=== PATIENT | male | born 1985 | race African-American/Black ===

== ENCOUNTER 2023-09-01 14:27 | Outpatient (REF) | payer MEDICAID, SELFPAY ==
[2023-09-01 17:51] LABS: Alanine Aminotransferase 40 U/L (0-40); Albumin Level 4.7 g/dL (3.5-5.0); Alkaline Phosphatase 58 U/L (39-117); Anion Gap 15 (12-20); Aspartate Amino Transferase 41 U/L (5-37); Bilirubin Total 0.5 mg/dL (0.0-1.0); Blood Urea Nitrogen 7 mg/dL (9-16); Carbon Dioxide 24 mmol/L (22-29); Chloride 104 mmol/L (96-108); Cholesterol 281 mg/dL (<200); Estimated Glomerular Filt Rate > 60; Glucose Random 105 mg/dL (60-115); HDL Cholesterol 62 mg/dL (>40); LDL Cholesterol Calculated 189 mg/dL (<100); Magnesium 1.9 mg/dL (1.6-2.6); Potassium 4.5 mmol/L (3.3-5.1); Sodium 138 mmol/L (135-145); Total Protein 7.7 g/dL (6.5-8.0); Triglycerides 154 mg/dL (<150)
[2023-09-01 18:05] LABS: TSH reflex Free T4 1.32 uIU/mL (0.32-4.0)
[2023-09-02 03:58] LABS: HIV AB/AG Nonreactive (Nonreactive); HIV Num 1 0.04 S/CO (0.00-0.99)
== END 2023-09-01 14:28 | disposition home or self-care (01) ==
LOC: HO.CHCLDS 14:27
PROVIDERS: Visit Provider Internal Medicine
DX: Z00.00 Encounter for general adult medical examination without abnormal findings (principal); Z11.4 Encounter for screening for human immunodeficiency virus [HIV]; I10 Essential (primary) hypertension; R73.01 Impaired fasting glucose; F10.10 Alcohol abuse, uncomplicated; E78.00 Pure hypercholesterolemia, unspecified
CPT/HCPCS: 36415; 80053; 80061; 83735; 84443; 87389

== ENCOUNTER 2024-12-27 10:21 | Outpatient (REF) | payer MEDICAID, SELFPAY ==
--- OUTSIDE RECORDS SUMMARY | 2024-12-27 11:27 | XMS_ITS | Encounter Summary ---
Author Organization [employer] Address [address] [facility] 7t [place] [address] Care Team Providers Care Check Writer Name Role Phone Agustina Grullon MD Primary Care Provider Reason for Visit * Reason Onset Date Comments Appointment Request 08/09/2023 Encounter Details Date Type Department Care Team ([facility] st Contact Info) Description 08/09/2023 Telephone [facility] MEDICINE [address] [place] [address] Agustina Grullon MD [address] [place], [place] [phone] Appointment Request Social History Tobacco Use Types Packs/Day Years Used Date Smoking Tobacco: Every Day Cigarettes Smokeless Tobacco: Never Sex and Gender Information Value Date Recorded Sex Assigned at Male 06/14/2022 10:19 AM EDT Legal Sex Male 10:19 AM EDT Gender Identity Male 06/14/2022 10:19 AM EDT Sexual Orientation Straight 06/14/2022 10 :19 AM EDT documented as of this encounter Miscellaneous Notes * Telephone Encounter - Tarik Ramirez - 08/09/2023 3:20 PM EST Tc from pt calling in regards to message prior calling to inform he does not have a phone at this moment and requesting to call him at [phone]. * Telephone Encounter - Mary Anne Villalta - 08/09/2023 12:23 PM EST Tc from pt requesting to see PCP, pt states needs a PE but also speak with PCP in regards medications. documented in this encounter Plan of Treatment Upcoming Encounters Date Type Department Care Team (Late st Contact Info) Description 01/21/2025 10:30 AM EDT Office Visit [facility] MED & PEDS [address] [place] [address] Hayes Muñoz MD [address] [place] [address] documented as of this encounter Visit Diagnoses Not on filedocumented in this encounter Care Teams Check Writer Relationship Specialty Start Date End Date Agustina Grullon MD [address] [place] [address] PCP - General Internal Medicine 01/02/19 documented as of this encounter
--- OUTSIDE RECORDS SUMMARY | 2024-12-27 11:27 | XMS_ITS | Encounter Summary ---
Author Organization [employer] Address [address] [facility] 7t [place] [address] Care Team Providers Care Certified Nursing Attendant Name Role Phone Agustina Grullon MD Primary Care Provider Encounter Details Date Type Department Care Team (Latest Contact Info) Description 12/24/2024 Travel Social History Tobacco Use Types Packs/Day Years Used Date Smoking Tobacco: Every Day Cigarettes 0.5 25 Passive Smoke Exposure: Current Smokeless Tobacco: Never Comments:Pt is smoking 3-5 C IG A DAY. Started to smoke at 11 years old, 1 ppd x 20 years than 3-5 cig a day x the last 8 years. Alcohol Use Standard Drinks/Week Comments Yes 3 (1 standard drink = 0.6 oz pure alcohol) 6 beers a day during the week end Alcohol Answer Date Recorded Q1: How often do you have a drink containing alc ohol? 5 11/16/2024 Q2: How many drinks containi ng alcohol do you have on a typical day when you are drinking? 4 11/16/2024 Q3: How often do you have six or more drinks on one occasion? 5 11/16/2024 Depression Answer Date Recorded Patient Health Questionnaire-9 Score 27 11/16/2024 Patient Health Questionnaire-9 Score 27 11/16/2024 Last PHQ-9: Questionnaire Data Not on file 0 11/16/2024 Housing Stability Answer Date Recorded What is your housing situation today? I have shell portillo 11/16/[address] you li ve. Do you have problems with any of the following? None of the above 11/16/2024 Food Insecurity Answer Date Recorded Within the past 12 months, y ou worried that your food would run out before you got money to buy more: Often true 11/16/2024 Within the past 12 months,th e food you bought just didn't last and you didn't have enough money to get more: Often true 11/2024 Transportation Answer Date Recorded In the past 12 months, has l ack of transportation kept you from medical appts, meetings, work or from getting things needed for daily living? Yes, it has kept me from medical appointments or getting medications. 11/16/2024 Utilities Answer Date Recorded In the past 12 months, has t he electric, gas, oil or water company threatened to shut off services in your home? Yes 11/16/2024 Depression Answer Date Recorded Patient Health Questionnaire-2 Score 6 11/16/2024 Internet Access Answer Date Recorded Internet Access Q1 Yes 11/16/2024 Internet Access Q2 Not on file 11/16/2024 Sex and Gender Information Value Date Recorded Sex Assigned at Male 06/14/2022 10:19 AM EDT Legal Sex Male 10:19 AM EDT Gender Identity Male 06/14/2022 10:19 AM EDT Sexual Orientation Straight 06/14/2022 10 :19 AM EDT documented as of this encounter Plan of Treatment Upcoming Encounters Date Type Department Care Team (Late st Contact Info) Description 01/21/2025 10:30 AM EDT Office Visit [facility] MED & PEDS [address] [place] [address] Hayes Muñoz MD [address] [place] [address] documented as of this encounter Visit Diagnoses Not on filedocumented in this encounter Additional Health Concerns Assessment Noted Time PHQ-9 Depression Total Score: 27 025 2:36 PM EDT documented as of this encounter Care Teams Certified Nursing Attendant Relationship Specialty Start Date End Date Agustina Grullon MD [address] [place] [address] PCP - General Internal Medicine 01/02/19 documented as of this encounter
--- OUTSIDE RECORDS SUMMARY | 2024-12-27 11:27 | XMS_ITS | Encounter Summary ---
Author Organization [employer] Address [address] [facility] 7 h Floor [place] [id number] Care Team Providers Care Meteorology Professor Name Role Phone Agustina Grullon MD Primary Care Provider [phone] Encounter Details Date Type Department Care Team (Latest Contact Info) Description 02/08/2019 Abstract [facility] CONVERSIONS Dental, Provider, DDS Social History Tobacco Use Types Packs/Day Years Used Date Smoking Tobacco: Never Assessed Sex and Gender Information Value Date Recorded Sex Assigned at Male 06/14/2022 10:19 AM EDT Legal Sex Male 10:19 AM EDT Gender Identity Male 06/14/2022 10:19 AM EDT Sexual Orientation Straight 06/14/2022 10 :19 AM EDT documented as of this encounter Plan of Treatment Upcoming Encounters Date Type Department Care Team (Late st Contact Info) Description 01/21/2025 10:30 AM EDT Office Visit [facility] MED & PEDS [address] [place] [address] Hayes Muñoz MD [address] [place] [address] documented as of this encounter Visit Diagnoses Not on filedocumented in this encounter Care Teams Meteorology Professor Relationship Specialty Start Date End Date Agustina Grullon MD [address] [place], [place] [phone] PCP - General Internal Medicine 01/02/19 documented as of this encounter
--- OUTSIDE RECORDS SUMMARY | 2024-12-27 11:27 | XMS_ITS | Encounter Summary ---
Author Organization [employer] Address [address] [place] [address] 7 h Floor [place] [phone] Care Team Providers Care Revolving Field Assembler Name Role Phone Agustina Grullon MD Primary Care Provider [phone] Encounter Details Date Type Department Care Team (Latest Contact Info) Description 08/05/2021 Abstract [facility] CONVERSIONS Dental, Provider, DDS Social History [...] Description 01/21/2025 10:30 AM EDT Office Visit [facility]C MED & PEDS [address] [place] [address] Hayes Muñoz MD [address] [place] [address] documented as of this encounter Visit Diagnoses Not on filedocumented in this encounter Care Teams Revolving Field Assembler Relationship Specialty Start Date End Date Agustina Grullon MD [address] [place], [place] [phone] PCP - General Internal Medicine 01/02/19 documented as of this encounter
--- OUTSIDE RECORDS SUMMARY | 2024-12-27 11:27 | XMS_ITS | Encounter Summary ---
Author Organization [employer] Address [address] [facility] 7t [place] [address] Care Team Providers Care History Department Chair Name Role Phone Agustina Grullon MD Primary Care Provider [phone] Reason for Visit * Reason Comments Follow-up Encounter Details Date Type Department Care Team ([facility] Contact Info) Description 12/27/2024 9:30 AM EDT Office Visit [facility] MED & PEDS [address] [place] [address] Agustina Grullon MD [address] [place] [address] Non-recurrent acute suppurative otitis media of left ear without spontaneous rupture of tympanic membrane (Primary Dx); Alcohol use disorder, severe, dependence (CMS/HCC); Functional diarrhea Social History Tobacco Use Types Packs/Day Years [...] a typical day when you are drinking? 11/16/2024 Q3: How often do you have [...] AM EDT documented as of this encounter Last Filed Vital Signs Vital Sign Reading Time Taken Comments Blood Pressure 107/72 12/27/2024 9:45 AM EDT Pulse 112 12/27/2024 9:45 AM EDT Temperature 36.7 ??C (98 ??F) 12/27/2024 9:45 AM EDT Respiratory Rate 20 12/27/2024 9:45 AM EDT Oxygen Saturation 94% 12/27/2024 9:45 AM EDT Inhaled Oxygen Concentration - - Weight 77.1 kg (170 lb) 12/27/2024 9:45 AM EDT Height 172.7 cm (5' 8 ) 12/27/2024 9:45 AM EDT Body Mass Index 25.85 12/27/2024 9:45 AM EDT documented in this encounter Progress Notes * Agustina Grullon MD - 12/27/2024 9:30 AM EDT SUBJECTIVE Ray Turner is a 39 y.o. male who presents for Follow-up. HPI 1) history of alcohol use disorder. Started on naltrexone with improvement. Has less urge to drink.Currently drink about 48 ounces of beer a day which is half the amount he used to drink. 2) history of diarrhea. Patient used to have 6-7 bowel movement a day. With the decrease amount of alcohol he is using a day now he is down to 2-3 loose bowel movements a day. Blood work home with stool workup were ordered. Not done yet. 3) patient is complaining of left ear ache with with some drainage that started after he is dental extraction. No reported fever or other constitutional symptoms. Problem List[1] Allergies[2] Medications Ordered Prior to Encounter[3] Review of Systems Constitutional: Negative for activity change, appetite change and chills. HENT: Positive for ear discharge and ear pain. Eyes: Negative for photophobia, pain and redness. Respiratory: Negative for cough, choking, chest tightness and stridor. Musculoskeletal: Negative for back pain, gait problem and joint swelling. OBJECTIVE Vitals: 12/27/24 0945 BP: 107/72 BP Location: Left arm Patient Position: Sitting BP Cuff Size: Adult Pulse: (!) 112 Resp: 20 Temp: 98 ??F (36.7 ??C) TempSrc: Oral SpO2: 94% Weight: 170 lb (77.1 kg) Height: 5' 8 (1.727 m) Physical Exam Constitutional: General: He is not in acute distress. Appearance: Normal appearance. He is not ill-appearing, toxic-appearing or diaphoretic. HENT: Right Ear: Hearing normal. Left Ear: Drainage present. Cardiovascular: Rate and Rhythm: Normal rate. Pulmonary: Effort: Pulmonary effort is normal. Neurological: Mental Status: He is alert. Assessment/Plan Assessment/Plan Diagnoses and all orders for this visit: Non-recurrent acute suppurative otitis media of left ear without spontaneous rupture of tympanic membrane - amoxicillin-clavulanate (Augmentin) 875-125 MG tablet; Take 1 tablet by mouth 2 times daily for 10 days. - celecoxib (CeleBREX) 100 MG capsule; Take 1 capsule (100 mg) by mouth 2 times daily. Alcohol use disorder, severe, dependence (CMS/HCC) Comments: Continue with naltrexone and the AA meetings. Functional diarrhea Comments: Improvement reported Stool workup as ordered Fluids with electrolyte recommended. 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 14 tablet 0 famotidine (Pepcid) 20 MG tablet Take 1 tablet (20 mg) by mouth 2 times daily. 180 tablet 3 ibuprofen 600 MG tablet Take 1 tablet (600 mg) by mouth every 6 (six) hours if needed for mild painfor up to 20 doses. 20 tablet 0 lisinopril 5 MG tablet TAKE 1 TABLET BY MOUTH EVERY DAY IN THE MORNING 90 tablet 3 naltrexone (Depade) 50 MG tablet Take 1 tablet (50 mg) by mouth Once per day. Start 1/2 tablet (=25mg) PO daily for 4 days, then increase to 1 tab daily 30 tablet 2 No current facility-administered medications on file prior to visit. documented in this encounter Plan of Treatment Upcoming Encounters Date Type Department Care Team (Late st Contact Info) Description 01/21/2025 10:30 AM EDT Office Visit [facility] MED & PEDS [address] [place] [address] Hayes Muñoz MD [address] [place], [place] [phone] documented as of this encounter Visit Diagnoses Diagnosis Non-recurrent acute suppurative otitis media of left ear without spontaneous rupture of tympanic membrane- Primary Alcohol use disorder, severe, dependence (CMS/HCC) Functional diarrhea documented in this encounter Additional Health Concerns Assessment Noted Time PHQ-9 Depression Total Score: 27 025 2:36 PM EDT documented as of this encounter Care Teams History Department Chair Relationship Specialty Start Date End Date Agustina Grullon MD [address] [place] [phone] PCP - General Internal Medicine 01/02/19 documented as of this encounter
--- OUTSIDE RECORDS SUMMARY | 2024-12-27 11:27 | XMS_ITS | Encounter Summary ---
Author Organization [employer] Address [address] [facility] 7t [place] [address] Care Team Providers Care Lines Tender Name Role Phone Agustina Grullon MD Primary Care Provider Reason for Visit * Reason Onset Date Comments Lab Orders 12/27/2024 Encounter Details Date Type Department Care Team ([facility] Contact Info) Description 12/27/2024 Telephone [facility]C MED & PEDS [address] [place] [address] Agustina Grullon MD [address] [place] [address] Lab Orders Social History Tobacco Use Types Packs/Day Years [...] encounter Miscellaneous Notes * Telephone Encounter - Cecelia Raymond RN - 12/27/2024 10:13 AM EDT TC to [facility], lab agency part of [facility]. Per [facility], does not have record of specimen collection from pt. TC to pt to request that pt complete labs at [facility] or [facility]. Pt verbalzed understanding and agreement with plan. Stated he would return to health center today. documented in this encounter Plan of Treatment Upcoming Encounters Date Type Department Care Team (Late st Contact Info) Description 01/21/2025 10:30 AM EDT Office Visit [facility] MED & PEDS [address] [place] [address] Hayes Muñoz MD [address] [place] [address] documented as of this encounter Visit Diagnoses Not on filedocumented in this encounter Additional Health Concerns Assessment Noted Time PHQ-9 Depression Total Score: 27 025 2:36 PM EDT documented as of this encounter Care Teams Lines Tender Relationship Specialty Start Date End Date Agustina Grullon MD [address] [place] [address] PCP - General Internal Medicine 01/02/19 documented as of this encounter
--- OUTSIDE RECORDS SUMMARY | 2024-12-27 11:27 | XMS_ITS | Clinical Summary ---
Author Organization [employer] [facility] Address [address] [place] [address] Care Team Providers Care Printer Machine Name Role Phone Unavailable Primary Care Provider Unavailabl e Social History Tobacco Use Types Packs/Day Years Used Date Smoking Tobacco: Never Assessed Sex and Gender Information Value Date Recorded Sex Assigned at Not on file Legal Sex Male 2:23 PM EST Gender Identity Not on file Sexual Orientation Not on file Plan of Treatment Health Maintenance Due Date Last Done Comments DTaP,Tdap,and Td Vaccines (1 - Tdap) 2002 Hepatitis B Vaccines (1 of 3 - 19+ 3-dose series) 2002 COVID-19 Vaccine (2023-2 5 season) 2024 Influenza Vaccine (Season Ended) 2025 HIB Vaccines Aged Out No longer eligi ble based on patient's age to complete this topic HPV Vaccines Aged Out No longer eligi ble based on patient's age to complete this topic Hepatitis A Vaccines Aged Out No long er eligible based on patient's age to complete this topic IPV Vaccines Aged Out No longer eligi ble based on patient's age to complete this topic MMR Vaccines Aged Out No longer eligi ble based on patient's age to complete this topic Meningococcal ACWY Vaccine Aged Out N o longer eligible based on patient's age to complete this topic Meningococcal B Vaccine Aged Out No l onger eligible based on patient's age to complete this topic Pneumococcal Vaccine: Pediat rics (0 to 5 Years) and At-Risk Patients (6 to 64 Years) Aged Out No longer eligible b ased on patient's age to complete this topic RSV Immunization Patients Un duane 20 months Aged Out No longer eligible b ased on patient's age to complete this topic Varicella Vaccines Aged Out No longer eligible based on patient's age to complete this topic
--- OUTSIDE RECORDS SUMMARY | 2024-12-27 11:27 | XMS_ITS | Clinical Summary ---
Author Organization [employer] Address [address] [facility] 7t [place] [address] Care Team Providers Care Relay Associate Name Role Phone Agustina Grullon MD Primary Care Provider Allergies No known active allergies Medications * This document contains information received from the source organization and may not represent a complete record from that organization. lisinopril 5 MG tabletIndication s:Primary hypertension TAKE 1 TABLET BY MOUTH EVERY DAY IN THE MORNING 90 tablet 3 09/28/19 25 Active famotidine (Pepcid) 20 MG tabletIndication s:Epigastric discomfort Take 1 tablet (20 mg) by mouth 2 times daily. 180 tablet 3 11/17/19 25 Active ibuprofen 600 MG tablet Take 1 tablet (600 mg) by mouth every 6 (six) hours if needed for mild pain for up to 20 doses. 20 tablet 12/07/19 25 Active naltrexone (Depade) 50 MG tabletIndication s:Alcohol use disorder, severe, dependence (CMS/HCC) Take 1 tablet (50 mg) by mouth Once per day. Start 1/2 tablet (=25mg) PO daily for 4 days, then increase to 1 tab daily 30 tablet 2 12/11/19 25 025 Active amoxicillin-clav ulanate (Augmentin) 500-125 MG tablet Take 1 tablet (500 mg) by mouth 2 times daily for 7 days. 14 tablet 12/21/19 25 025 Active amoxicillin-clav ulanate (Augmentin) 875-125 MG tabletIndication s:Non-recurrent acute suppurative otitis media of left ear without spontaneous rupture of tympanic membrane Take 1 tablet by mouth 2 times daily for 10 days. 20 tablet 12/28/19 25 025 Active celecoxib (CeleBREX) 100 MG capsuleIndicatio ns:Non-recurrent acute suppurative otitis media of left ear without spontaneous rupture of tympanic membrane Take 1 capsule (100 mg) by mouth 2 times daily. 60 capsule 12/28/19 25 025 Active disulfiram (Antabuse) 250 MG tabletIndication s:Alcohol abuse Take 1 tablet (250 mg) by mouth Once per day. 30 tablet 11 11/17/19 25 025 Discontinued Active Problems Problem Noted Date Diagnosed Date Severe major depression without psychotic featur es 11/16/2024 SAMANTHA (generalized anxiety disorder) 11/16/2024 Alcohol abuse 09/01/2023 09/01/2023 Left-sided Solis's palsy 09/01/2023 09/01/19 24 Hypercholesterolemia 01/08/2019 09/01/2023 Impaired fasting glucose 01/08/2019 024 Encounters * This document contains information received from the source organization and may not represent a complete record from that organization. Date Type Department Care Team Description 12/27/2024 9:30 AM EDT Office Visit [facility] MED & PEDS [address] [place] [address] Agustina Grullon MD Non-recurrent acute suppurative otitis media of left ear without spontaneous rupture of tympanic membrane (Primary Dx); Alcohol use disorder, severe, dependence (CMS/HCC); Functional diarrhea 12/27/2024 Telephone [facility] [address] [place] [address] Agustina Grullon MD Lab Orders 12/27/2024 Travel 12/24/2024 10:15 AM EDT Office Visit [facility] [address] [place] [address] Hayes Muñoz MD Alcohol use disorder, severe, dependence (CMS/HCC) (Primary Dx) 12/24/2024 Telephone [facility] [address] [place] [address] Hayes Muñoz MD 12/24/2024 Travel 12/20/2024 1:00 PM EDT Office Visit [facility] ADULT D[facility]AL [address] [place] [address] Alberto Guzman 12/10/2024 10:45 AM EDT Office Visit [facility] [address] [place] [address] Hayes Muñoz MD Alcohol use disorder, severe, dependence (CMS/HCC) (Primary Dx) 12/10/2024 Travel 12/06/2024 8:00 AM EDT Office Visit [facility] AD[facility] [address] [place] [address] Alberto Guzman 11/21/2024 3:15 PM EDT Office Visit [facility] [address] [place] [address] Bob Hernandez DMD 11/19/[address] [facility] [address] [place] [phone] Jeannie Mtz [place] 11/16/2024 2:00 PM EDT Office Visit [facility] [address] [place] [address] Agustina Grullon MD Severe episode of recurrent major depressive disorder, 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/HCC) (Primary Dx); Alcohol abuse; Epigastric discomfort; Functional diarrhea 11/16/2024 Travel 11/14/2024 10:15 AM EDT Office Visit [facility] ADULT [facility] [address] [place] [address] Bob Hernandez DMD History of tooth extraction, unspecified edentulism class (Primary Dx) 11/08/[address] [facility] [address] [place] [address] Agustina Grullon MD Pre-visit Planning (Pre visit planning LVM ) 10/26/2024 Population Health Risk Score [facility] Department [address] [place] [address] [phone] Provider, Population Health Generic 10/17/2024 9:00 AM EST Office Visit [facility] ADULT [facility] [address] [place] [address] Dalring Sage, SAJAN 10/10/2024 8:00 AM EST Office Visit [facility] [address] [place] [address] Alberto Guzman Chipped tooth (Primary Dx) from Last 3 Months Family History Medical History Relation Name Comments Diabetes type II Father Hypertension Father Lung cancer Father Diabetes Mother No Known Problems Paternal Grandfather No Known Problems Paternal Grandmother Relation Name Status Comments Father Mother Paternal Grandfather Paternal Grandmother Social History Tobacco Use Types Packs/Day Years Used Date Smoking Tobacco: Every Day Cigarettes 0.5 25 Passive Smoke Exposure: Current Smokeless Tobacco: Never Tobacco Cessation:Ready to Q uit: Not Asked; Counseling Given: Not Answered Comments:Pt is smoking 3-5 CIG A DAY. Started to smoke at 11 [...] is your housing situation today? I have shellandie portillo 11/16/[address] you [...] Orientation Straight 06/14/2022 10 :19 AM EDT Last Filed Vital Signs Vital Sign Reading [...] Mass Index 25.85 12/27/2024 9:45 AM EDT Plan of Treatment Upcoming Encounters Date Type Department Care Team (Late st Contact Info) Description 01/21/2025 10:30 AM EDT Office Visit [facility] [address] [place] [address] Hayes Muñoz MD [address] [place] [address] Health Maintenance Due Date Last Done Comments Family Planning (PISQ) 1998 Hepatitis C Screening 2001 Hepatitis B Vaccines (1 of 3 - 19+ 3-dose series) 2002 Pneumococcal Vaccine: Pediatrics (0 to 5 Years) and At-Risk Patients (6 to 49) Years) (1 of 2 - PCV) 2002 Dental Oral Exam 01/03/2025 07/05/2024, , 08/21/2019, Additional history exists Dental Prophylaxis 01/03/2025 07/05/2024, 1 10/06/2020, 08/21/2019, Additional history exists Dental X-Ray: Bitewings 07/06/2025 07/05/20 24, 08/05/2021, 08/21/2019, Additional history exists Alcohol/Substance Use Screening 11/16/2025 11/16/2024 Depression Screening 11/16/2025 11/16/2024, 11/17/19 25 SDOH Screening 11/16/2025 11/16/2024 Tobacco Screening 12/27/2025 12/27/2024 Dental X-Ray: Full Mouth 10/19/2027 025, 03/24/2022, 07/20/2021, Additional history exists Lipid Panel 09/01/2028 09/01/2023 DTaP/Tdap/Td Vaccines (2 - Td or Tdap) 11/02/2029 11/03/2019 Zoster Vaccines (1 of 2) 2033 RSV Patients and Patients Aged 60 years or older (1 - 1-dose 75+ series) 2058 HIV Screening Completed 09/01/2023 COVID-19 Vaccine Completed 07/02/2024, 01/2021, 01/27/2021 Influenza Vaccine Completed 07/02/2024 HIB Vaccines Aged Out No longer eligi [...] patient's age to complete this topic Meningococcal Vaccine Aged Out No alvarado guillermina eligible based on patient's age to complete this topic RSV under 20 months Aged Out No longe r eligible based on patient's age to complete this topic Rotavirus Vaccines Aged Out No longer eligible based on patient's age to complete this topic Procedures Procedure Name Priority Date/Time Associated Diagnosis Comments POCT STEPHANIE-14 URINE DRUG SCREEN Routine 12/24/2024 10:17 AM EDT Alcohol use disorder, severe, dependence (CMS/HCC) CASE PRESENTATION, DETAILED AND EXTENSIVE TREATMENT PLANNING Routine 12/20/2024 1:00 PM EDT INTRAORAL - PERIAPICAL FIRST RADIOGRAPHIC IMAGE Routine 12/20/2024 1:00 PM EDT RE-EVAL - POST-OP OFFICE VISIT Routine 12/20/2024 1:00 PM EDT POCT STEPHANIE-14 URINE DRUG SCREEN Routine 12/10/2024 11:53 AM EDT Alcohol use disorder, severe, dependence (CMS/HCC) 16 LIMITED ORAL EVALUATION - PROBLEM FOCUSED Routine 12/06/2024 8:00 AM EDT RE-EVAL - POST-OP OFFICE VISIT Routine 11/21/2024 3:15 PM EDT 17 REMOVAL OF IMPACTED TOOTH - COMPLETELY BONY Routine 11/14/2024 10:15 AM EDT 16 REMOVAL OF IMPACTED TOOTH - COMPLETELY BONY Routine 11/14/2024 10:15 AM EDT CASE PRESENTATION, DETAILED AND EXTENSIVE TREATMENT PLANNING Routine 10/17/2024 9:00 AM EST PANORAMIC RADIOGRAPHIC IMAGE Routine 10/17/2024 9:00 AM EST CONSULTATION WITH A MEDICAL HEALTH CRUCIBLE PACKER Routine 10/17/2024 9:00 AM EST CASE PRESENTATION, DETAILED AND EXTENSIVE TREATMENT PLANNING Routine 10/10/2024 8:00 AM EST 30 MOD RESIN-BASED COMPOSITE - 3 SURF, POSTERIOR Routine 10/10/2024 8:00 AM EST PROPHYLAXIS - ADULT Routine 07/05/2024 1 :00 PM EST BITEWINGS - 4 RADIOGRAPHIC IMAGES Routine 07/05/2024 1:00 PM EST PERIODIC ORAL EVALUATION - ESTABLISHED PATIENT Routine 07/05/2024 1:00 PM EST HIV 1/2 ANTIGEN/ANTIBODY, FOURTH GENERATION W/RFL Routine 09/01/2023 2:31 PM EST Annual physical exam LIPID PANEL, STANDARD Routine 09/01/2023 2:31 PM EST Annual physical exam Hypercholesterolemi a Alcohol abuse Impaired fasting glucose from Last 3 Months or Most Recently Relevant to Health Maintenance Results * POCT STEPHANIE-14 Urine Drug Screen (12/24/2024 10:17 AM EDT) Only the most recent of2 resultswithin the time period is included. THC Positive Cocaine Screen, Urine Negative Opiate Screen, Urine Negative Methamphetamine Screen Urine Negative Amphetamine Screen, Urine Negative Benzodiazepines Screen, Urine Negative Barbiturate Screen, Urine Negative Methadone Screen, Urine Negative Buprenophine Screen, Urine Negative TCA, Urine Negative MDMA Urine Negative ng/mL Oxycodone Screen, Urine Negative Phencyclidine (PCP), Urine Positive Fentanyl, Urine Negative Urine Urine specimen obtained by clean catch procedure / Unknown 12/24/2024 10:17 AM EDT Hayes Muñoz MD POINT OF CARE TEST ENTER/EDIT OR DERABLES Final Result * HIV-1/2 Antigen and Antibodies, Fourth Generation, with Reflexes (09/01/2023 2:31 PM EST) HIV AB/AG Nonreactive Nonreactive [facility] Comment:HIV-1 p24 Ag and/or HIV-1/HIV-2 Ab not detected.A test result that is nonreactive does not exclude thepossibility of exposure to or infection with HIV-1 and/orHIV-2. Nonreactive results in this assay for individualswith prior exposure to HIV-1 and/or HIV-2 may be due toantigen and antibody levels that are below the limit ofdetection of this assay.The [employer] HIV Ag/Ab Combo assay result andsupplemental assay results should be interpreted inconjunction with the patient's clinical presentation,history and other laboratory results. If the results areinconsistent with clinical evidence, additional testing issuggested to confirm the result. Blood Venous blood specimen / Unknown 09/01/2023 2:31 PM EST 09/01/2023 5:18 PM EST us Agustina Grullon MD LAB BLOOD ORDERABLES Final Result [facility] [address] [place] [address] [phone] * (ABNORMAL) Lipid Panel, Standard (09/01/2023 2:31 PM EST) Triglycerides 154(H) <150 mg/dL [facility] Comment:Desirable Triglyceri de: less than 150 mg/dLBorderline High Triglyceride 150-199 mg/dLHigh Triglyceride: 200-499 mg/dLVery High Triglyceride: greater than or equal to 5OO mg/dL Cholesterol 281(H) <200 mg/dL [facility] Comment:Desirable Cholestero l: less than 200 mg/dLBorderline High Cholesterol: 200-239 mg/dLHigh Cholesterol: greater than 239 mg/dL LDL Cholesterol Calculated 189(H) <100 mg/dL [facility] Comment:Desirable LDL: less than 100 mg/dLNear Optimal/Above Optimal LDL: 110- 129 mg/dLBorderline High LDL: 130-159 mg/dLHigh LDL: 160-189 mg/dLVery High LDL: greater than or equal to 190 mg/dL HDL Cholesterol 62 >40 mg/dL [facility] Comment:Desirable HDL: great er than 40 mg/dL Note: This HDL assay may give artificially low results in patients with liver disease. Blood Venous blood specimen / Unknown 09/01/2023 2:31 PM EST 09/01/2023 5:18 PM EST us Agustina Grullon MD LAB BLOOD ORDERABLES Final Result [facility] [address] [place] [phone] from Last 3 Months or Most Recently Relevant to Health Maintenance Insurance [facility] C[place] STAND ADULT Care Teams Relay Associate Relationship Specialty Start Date End Date Agustina Grullon MD [address] [place] [address] PCP - General Internal Medicine 01/02/19
--- OUTSIDE RECORDS SUMMARY | 2024-12-27 11:27 | XMS_ITS | Encounter Summary ---
Author Organization [employer] Address [address] [facility] 7t [place] [address] Care Team Providers Care Race Car Mechanic Name Role Phone Agustina Grullon MD Primary Care Provider Encounter Details Date Type Department Care Team (Latest Contact Info) Description 12/27/2024 Travel Social History Tobacco Use Types Packs/Day [...] 01/21/2025 10:30 AM EDT Office Visit [facility] [address] [place] [address] Hayes Muñoz MD [address] [place] [address] documented as of this encounter Visit Diagnoses Not on filedocumented in this encounter Additional Health Concerns Assessment Noted Time PHQ-9 Depression Total Score: 27 025 2:36 PM EDT documented as of this encounter Care Teams Race Car Mechanic Relationship Specialty Start Date End Date Agustina Grullon MD [address] [place] [address] PCP - General Internal Medicine 01/02/19 documented as of this encounter
--- OUTSIDE RECORDS SUMMARY | 2024-12-27 11:27 | XMS_ITS | Encounter Summary ---
Author Organization [employer] Address [address] [facility] [address] 7[address] [place] [address] Care Team Providers Care Bookie Name Role Phone Agustina Grullon MD Primary Care Provider Reason for Visit * Reason Comments AUD F/U Encounter Details Date Type Department Care Team ([facility] st Contact Info) Description 12/24/2024 10:15 AM EDT Office Visit [facility] [address] [place], [place] [phone] Hayes Muñoz MD [address] [place] [address] Alcohol use disorder, severe, dependence (CMS/HCC) (Primary Dx) Social History Tobacco Use Types Packs/Day Years [...] AM EDT documented as of this encounter Progress Notes * Hayes Muñoz MD - 12/24/2024 10:15 AM EDT AUD FOLLOW-UP 12/24/2024 Patient presents for AUD follow up. Seen previously, but could not start Naltrexone PO due to positive FEN in his UTOX. He was unaware for the source of FEN, but suspected contaminated marijuana. Last alcohol use was 6am today. Still interested in starting MAT with Naltrexone. States he just got lab work done through [facility]. Awaiting a call back from referral. Previous HPI: AUD PHYSICIAN MAT INTAKE 12/10/2024 UTOX: POS RACHEL, FEN, THC DSM-5 AUD Score: 11 (Severe) Patient with a long history of AUD presents to discuss treatment options. Referred by PCP Dr. Grullon. Also with underlying MDD, SAMANTHA, impaired fasting glucose, and hypercholesterolemia. Patient is here on his own volition and motivated to completely stop drinking alcohol. First drink was 8 years old; problem drinking started at 17. History cocaine use, but denies chronic use or dependence (last use was many months ago). Denies any opiate use or misuse. Typically consumes 72 - 96 oz of beer daily for the past 1 year. Prior to this, he admits to black-out drinking.Last alcohol use was 12/08/2024 (2 days ago) of 48 oz of beer. Denies wine or hard liquor consumption. His longest duration of sobriety was 2 weeks about 6 months ago ( cold turkey ). Currently not working. 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 Lives with GF who also drinks, but supportive of his endeavor for recovery. No children. Previous history of [address] for 45 days (3 years ago); stayed sober 1.5 weeks afterward. Went tofew AA meeting in the past. Never had inpatient detox or residential programs. No previous MAT for AUD. No pending legal issues. History of OUI 10 years ago; DL taken away at that time (never got it back). Went through a group treatment at the time of OUD (no senior care time). Typical withdrawal symptoms include tremors, sweating, N/V/D. Never had withdrawal seizures or DT. Complete abstinence is the ultimate goal for him. Admits to THC use, but was unaware of his RACHEL andFEN in his UTOX (suspect contaminated marijuana). Labs ordered by PCP, but has not completed yet. Review of Systems Psychiatric/Behavioral: Negative for behavioral problems and dysphoric mood. The patient is not nervous/anxious. Physical Exam Constitutional: Appearance: Normal appearance. Pulmonary: Effort: Pulmonary effort is normal. Neurological: Mental Status: He is alert. Psychiatric: Mood and Affect: Mood normal. Behavior: Behavior normal. Ray was seen today for aud f/u . Diagnoses and all orders for this visit: Alcohol use disorder, severe, dependence (CMS/HCC) (Primary) - POCT STEPHANIE-14 Urine Drug Screen Patient with AUD presents for a follow-up appointment; looking to start MAT Motivated to improve his health and work on recovery Last drink was 2 days ago Previous UTOX positive for FEN Today's UTOX positive for THC and PCP Numerous treatment options reviewed including inpatient detox, residential programs, and various MAT Rx's Interested in starting Naltrexone PO as an outpatient treatment; will start today PCP prescribed Antabuse, but did not start due to a fear of GI symptoms Previous labs overall unremarkable Potential adverse effects of the medication reviewed Also encouraged weekly GBAT meetings and outside AA/NA Discussed about the risks of alcohol withdrawal in a home setting, including DT, seizure and Gradual taper of alcohol recommended and AA support recommended Follow up in 1 month Referral to Therapy and Psychopharmacology discussed Indications for ER and inpatient detox reviewed Advised to contact the clinic with any worsening symptoms This information has been disclosed to you from records protected by federal confidentiality rules (42 CFR Part 2). The federal rules prohibit you from making any further disclosure of information inthis record that identifies a patient as having or having had a substance use disorder either directly, by reference to publicly available information, or through verification of such identification by another person unless further disclosure is expressly permitted by the written consent of the individual whose information is being disclosed or as otherwise permitted by (see2.3.1). The federal rules restrict any use of the information to investigate or prosecute with regard to a crime any patient with a substance use disorder, except as provided at 2.12??(5) and 2.65 documented in this encounter Plan of Treatment Upcoming Encounters Date Type Department Care Team (Late st Contact Info) Description 01/21/2025 10:30 AM EDT Office Visit [facility] [address] [place] [address] Hayes Muñoz MD [address] [place] [address] documented as of this encounter Procedures Procedure Name Priority Date/Time Associated Diagnosis Comments POCT STEPHANIE-14 URINE DRUG SCREEN Routine 12/24/2024 10:17 AM EDT Alcohol use disorder, severe, dependence (CMS/HCC) documented in this encounter Results * POCT STEPHANIE-14 Urine Drug Screen (12/24/2024 10:17 AM EDT) THC Positive Cocaine Screen, Urine Negative Opiate [...] CARE TEST ENTER/EDIT OR DERABLES Final Result documented in this encounter Visit Diagnoses Diagnosis Alcohol use disorder, severe, dependence (CMS/HCC)- Primary documented in this encounter Additional Health Concerns Assessment Noted Time PHQ-9 Depression Total Score: 27 025 2:36 PM EDT documented as of this encounter Care Teams Bookie Relationship Specialty Start Date End Date Agustina Grullon MD [address] [place] [phone] PCP - General Internal Medicine 01/02/19 documented as of this encounter
--- OUTSIDE RECORDS SUMMARY | 2024-12-27 11:27 | XMS_ITS | Encounter Summary ---
Author Organization [employer] Address [address] [facility] [address] [place] [address] Care Team Providers Care Wheel Setter Name Role Phone Agustina Grullon MD Primary Care Provider [phone] Encounter Details Date Type Department Care Team (Late st Contact Info) Description 12/24/2024 Telephone [facility] [address] [place], [place] [phone] Hayes Muñoz MD [address] [place] [address] Social History Tobacco Use Types Packs/Day Years [...] encounter Miscellaneous Notes * Telephone Encounter - Hayes Muñoz MD - 12/24/2024 10:29 AM EDT Communication with the team RN documented in this encounter Plan of Treatment Upcoming Encounters Date Type Department Care Team (Late st Contact Info) Description 01/21/2025 10:30 AM EDT Office Visit [facility] P[facility] [address] [place] [address] Hayes Muñoz MD [address] [place] [phone] documented as of this encounter Visit Diagnoses Not on filedocumented in this encounter Additional Health Concerns Assessment Noted Time PHQ-9 Depression Total Score: 27 025 2:36 PM EDT documented as of this encounter Care Teams Wheel Setter Relationship Specialty Start Date End Date Agustina Grullon MD [address] [place] [phone] PCP - General Internal Medicine 01/02/19 documented as of this encounter
[2024-12-27 12:06] LABS: MANUAL DIFF FLAG NO
[2024-12-27 12:14] LABS: Basophils Absolute Auto 0.1 X10*3/uL (0.0-0.2); Basophils Percent Auto 1.3 % (0-2); Eosinophils Absolute Auto 0.1 X10*3/uL (0.0-0.4); Hematocrit 39.9 % (42.0-52.0); Hemoglobin 13.9 g/dl (14.0-18.0); Imm Gran Abs Auto 0.05 X10*3/uL (0.00-0.03); Imm Gran Pct Auto 0.7 % (0.0-0.4); Lymphocytes Absolute Auto 1.7 X10*3/uL (1.2-4.9); Lymphocytes Percent Auto 25.2 % (20-40); Mean Corpuscular HGB Conc 34.8 g/dl (31.0-36.0); Mean Corpuscular Hemoglobin 31.1 pg (27.0-33.0); Mean Corpuscular Volume 89.3 fL (80.0-98.0); Mean Platelet Volume 9.3 fL (9.4-12.4); Monocytes Absolute Auto 0.6 X10*3/uL (0.1-1.2); Monocytes Percent Auto 9.2 % (2-11); Neutrophils Absolute Auto 4.2 x10*3/uL (2.0-8.3); Neutrophils Percent Auto 62.6 % (45-73); Platelet Count 277 X10*3/uL (160-400); Red Blood Count 4.47 X10*6/uL (4.60-5.80); Red Cell Distribution Width 14.6 % (11.0-16.0); White Blood Count 6.8 X10*3/uL (4.8-10.8)
[2024-12-27 12:17] LABS: Amphetamine Screen Urine Not Detected (Not Detect); Barbiturates, Urine Not Detected (Not Detect); Benzodiazepines Screen Urine Not Detected (Not Detect); Buprenorphine Scr Not Detected (Not Detect); Cannabinoid Screen Urine POSITIVE (Not Detect); Cocaine Screen Urine Not Detected (Not Detect); Fentanyl, urine Not Detected (Not Detect); Methadone Screen, Urine Not Detected (Not Detect); Opiate Screen Urine Not Detected (Not Detect); Oxycodone Screen Urine Not Detected (Not Detect); Phencyclidine Screen Urine POSITIVE (Not Detect)
[2024-12-27 12:36] LABS: Alanine Aminotransferase 19 U/L (0-40); Albumin Level 4.2 g/dL (3.5-5.0); Alkaline Phosphatase 67 U/L (39-117); Anion Gap 16 (12-20); Aspartate Amino Transferase 35 U/L (5-37); Bilirubin Total 0.5 mg/dL (0.0-1.0); Blood Urea Nitrogen 3 mg/dL (9-16); Calcium 9.7 mg/dL (8.4-10.2); Carbon Dioxide 23 mmol/L (22-29); Chloride 103 mmol/L (96-108); Cholesterol 302 mg/dL (<200); Estimated Glomerular Filt Rate > 60; Glucose Random 120 mg/dL (60-115); HDL Cholesterol 61 mg/dL (>40); LDL Cholesterol Calculated 163 mg/dL (<100); Magnesium 1.7 mg/dL (1.6-2.6); Potassium 4.1 mmol/L (3.3-5.1); Sodium 138 mmol/L (135-145); Total Protein 7.1 g/dL (6.5-8.0); Triglycerides 391 mg/dL (<150)
[2024-12-27 12:45] LABS: HIV AB/AG Nonreactive (Nonreactive); HIV Num 1 0.06 S/CO (0.00-0.99)
[2024-12-27 12:59] LABS: Folate 11.9 ng/mL (> or = 4.0); Vitamin B12 429 pg/mL (200-900)
[2024-12-29 13:58] LABS: HCV Log PCR <1.18 NOT DETECTED Log IU/mL (NOT DETECTED); HepC Viral Load <15 NOT DETECTED IU/mL (NOT DETECTED)
[2025-01-01 17:38] LABS: Vitamin B1 <6 nmol/L (8-30)
== END 2024-12-27 10:22 | disposition home or self-care (01) ==
LOC: HO.CHCLDS 10:21
PROVIDERS: Family Medicine; Visit Provider Internal Medicine
DX: F33.2 Major depressive disorder, recurrent severe without psychotic features (principal); F10.10 Alcohol abuse, uncomplicated
CPT/HCPCS: 36415; 80053; 80061; 80307; 82306; 82607; 82746; 83735; 84207; 84425; 85025; 87389; 87522

== ENCOUNTER 2025-01-01 11:04 | Outpatient (REF) | payer MEDICAID, SELFPAY ==
--- OUTSIDE RECORDS SUMMARY | 2025-01-01 12:23 | XMS_ITS | Encounter Summary ---
Author Organization [employer] Address [address] [facility] 7t [place] [address] Care Team Providers Care Archivist Military History Name Role Phone Agustina Grullon MD Primary Care Provider Reason for Visit * Reason Onset Date Comments Appointment Request 08/09/2023 Encounter Details Date Type Department Care Team ([facility] st Contact Info) Description 08/09/2023 Telephone [facility] [address] [place] [address] Agustina Grullon MD [address] [place], [place] [phone] Appointment Request Social History Tobacco Use Types [...] moment and requesting to call him at [phone]. * Telephone Encounter - Mary Anne Villalta - 08/09/2023 12:23 PM EST Tc from pt requesting to see PCP, pt states needs a PE but also speak with PCP in regards medications. documented in this encounter Plan of Treatment Upcoming Encounters Date Type Department Care Team (Late st Contact Info) Description 01/03/2025 9:30 AM EDT Office Visit [facility] & PEDS [address] [place] [address] Agustina Grullon MD [address] [place] [address] 01/21/2025 10:30 AM EDT Office Visit [facility] [address] [place] [address] Hayes Muñoz MD [address] [place], [place] [phone] documented as of this encounter Visit Diagnoses Not on filedocumented in this encounter Care Teams Archivist Military History Relationship Specialty Start Date End Date Agustina Grullon MD [address] [place] [address] PCP - General Internal Medicine 01/02/19 documented as of this encounter
--- OUTSIDE RECORDS SUMMARY | 2025-01-01 12:23 | XMS_ITS | Clinical Summary ---
Author Organization [employer] Address [address] [facility] 7[address] [place] [address] Care Team Providers Care Wood Fence Installer Name Role Phone Agustina Grullon MD Primary [...] 12/11/19 25 025 Active amoxicillin-clav ulanate (Augmentin) 875-125 [...] daily. 60 capsule 12/28/19 25 025 Active cholecalciferol (Vitamin D-3) 50 MCG (1999 UT) capsuleIndicatio ns:Low vitamin D level Take 1 capsule (50 mcg) by mouth Once per day. 30 capsule 11 12/28/19 25 Active cholecalciferol (Vitamin D-3) 50 MCG (2000 UT) capsuleIndicatio ns:Low vitamin D level Take 1 capsule (50 mcg) by mouth Once per day. 30 capsule 3 12/31/19 25 Active disulfiram (Antabuse) 250 MG tabletIndication s:Alcohol abuse Take 1 tablet (250 mg) by mouth Once per day. 30 tablet 11 11/17/19 25 025 Discontinued amoxicillin-clav ulanate (Augmentin) 500-125 MG tablet Take 1 tablet (500 mg) by mouth 2 times daily for 7 days. 14 tablet 12/21/19 25 025 Active Problems Problem Noted Date Diagnosed Date Low vitamin D level 12/27/2024 Severe major depression without psychotic featur es 11/16/2024 SAMANTHA (generalized anxiety disorder) 11/16/2024 Alcohol abuse 09/01/2023 09/01/2023 Left-sided Solis's palsy 09/01/2023 09/01/19 24 Hypercholesterolemia 01/08/2019 09/01/2023 Impaired fasting glucose 01/08/2019 024 Encounters * This document contains information received from the source organization and may not represent a complete record from that organization. Date Type Department Care Team Description 12/30/2024 Results Follow-Up [facility] [address] [place] [address] Agustina Grullon MD CBC auto differential, Lipid Panel, Standard, Comprehensive Metabolic Panel, Additional followed-up results: 5 12/28/2024 Telephone [facility] [address] [place] [address] Agustina Grullon MD Results 12/27/2024 9:30 AM EDT Office Visit [facility] [address] [place] [address] Agustina Grullon MD Non-recurrent acute suppurative otitis media of left ear without spontaneous rupture of tympanic membrane (Primary Dx); Alcohol use disorder, severe, dependence (CMS/HCC); Functional diarrhea 12/27/2024 Orders Only [facility] [address] [place] [address] Agustina Grullon MD Low vitamin D level (Primary Dx) 12/27/2024 Telephone [facility] [address] [place] [address] Agustina Grullon MD Lab Orders 12/27/2024 Travel 12/24/2024 10:15 AM EDT Office Visit [facility] [address] [place] [address] Hayes Muñoz MD Alcohol use disorder, severe, dependence (CMS/HCC) (Primary Dx) 12/24/2024 Telephone [facility] [address] [place] [address] Hayes Muñoz MD 12/24/2024 Travel 12/20/2024 1:00 PM EDT Office Visit [facility] ADULT DENTAL [address] [place] [address] Alberto Guzman 12/10/2024 10:45 AM EDT Office Visit [facility] [address] [place] [address] Hayes Muñoz MD Alcohol use disorder, severe, dependence (CMS/HCC) (Primary Dx) 12/10/2024 Travel 12/06/2024 8:00 AM EDT Office Visit [facility] [address] [place] [address] Alberto Guzman 11/21/2024 3:15 PM EDT Office Visit [facility] [address] [place] [address] Bob Hernandez, SAJAN 11/19/[address] [address] Jeannie Mtz [place] 11/16/2024 2:00 PM EDT Office Visit [facility] [address] [place] [address] Agustina Grullon MD Severe episode of recurrent major depressive disorder, 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/HCC) (Primary Dx); Alcohol abuse; Epigastric discomfort; Functional diarrhea 11/16/2024 Travel 11/14/2024 10:15 AM EDT Office Visit [facility] [address] [place] [address] Bob Hernandez DMD History of tooth extraction, unspecified edentulism class (Primary Dx) 11/08/2024 Patient Outreach [facility] [address] [place], [place] [phone] Agustina Grullon MD Pre-visit Planning (Pre visit planning LVM ) 10/26/2024 Population Health Risk Score [facility] () Department [address] [place] [phone] Provider, Population Health Generic 10/17/2024 9:00 AM EST Office Visit [facility] [address] [place] [address] Darling Sage DMD 10/10/2024 8:00 AM EST Office Visit [facility] [address] [place] [address] Megan, Alberto Chipped tooth (Primary Dx) from Last 3 [...] Description 01/03/2025 9:30 AM EDT Office Visit [facility] [address] [place], [place] [phone] Agustina Grullon MD [address] [place], [place] [phone] 01/21/2025 10:30 AM EDT Office Visit [facility] [address] [place], [place] [phone] Hayes Muñoz MD [address] [place] [address] Health Maintenance Due Date Last Done Comments Disability Screening 1983 Family Planning (PISQ) 1998 Hepatitis B Vaccines (1 of 3 - [...] 10/19/2027 025, 03/24/2022, 07/20/2021, Additional history exists DTaP/Tdap/Td Vaccines (2 - Td or Tdap) 11/02/2029 11/03/2019 Lipid Panel 12/27/2029 12/27/2024, 09/01/2023 Zoster Vaccines (1 of 2) 2033 RSV Patients and Patients Aged 60 years or older (1 - 1-dose 75+ series) 2058 COVID-19 Vaccine Completed 07/02/2024, 01/2021, 01/27/2021 Influenza Vaccine Completed 07/02/2024 HIV Screening Completed 12/27/2024, 09/01/2023 Hepatitis C Screening Completed 12/27/2024 HIB Vaccines Aged Out No longer eligi [...] Procedure Name Priority Date/Time Associated Diagnosis Comments DRUG MONITOR, PANEL 1, SCREEN, URINE Routine 12/27/2024 10:25 AM EDT Alcohol use disorder, severe, dependence (CMS/HCC) MAGNESIUM Routine 12/27/2024 10:24 AM EDT Severe episode of recurrent major depressive disorder, 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/HCC) Alcohol abuse HIV 1/2 ANTIGEN/ANTIBODY, FOURTH GENERATION W/RFL Routine 12/27/2024 10:24 AM EDT Severe episode of recurrent major depressive disorder, 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/HCC) Alcohol abuse HEPATITIS C VIRAL RNA, QUANTITATIVE, REAL-TIME PCR Routine 12/27/2024 10:24 AM EDT Severe episode of recurrent major depressive disorder, 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/HCC) Alcohol abuse VITAMIN D,25-OH,TOTAL,IA Routine 12/27/2024 10:24 AM EDT Severe episode of recurrent major depressive disorder, 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/HCC) Alcohol abuse VITAMIN B12/FOLATE, SERUM PANEL Routine 12/27/2024 10:24 AM EDT Severe episode of recurrent major depressive disorder, 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/HCC) Alcohol abuse COMPREHENSIVE METABOLIC PANEL Routine 12/27/2024 10:24 AM EDT Severe episode of recurrent major depressive disorder, 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/HCC) Alcohol abuse LIPID PANEL, STANDARD Routine 12/27/2024 10:24 AM EDT Severe episode of recurrent major depressive disorder, 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/HCC) Alcohol abuse CBC WITH AUTO DIFFERENTIAL Routine 12/27/2024 10:24 AM EDT Severe episode of recurrent major depressive disorder, 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/HCC) Alcohol abuse POCT STEPHANIE-14 URINE DRUG SCREEN Routine 12/24/2024 [...] AM EST CONSULTATION WITH A MEDICAL HEALTH WOODENWARE ASSEMBLER Routine 10/17/2024 9:00 AM EST CASE PRESENTATION, DETAILED AND EXTENSIVE TREATMENT PLANNING Routine 10/10/2024 8:00 AM EST 30 MOD RESIN-BASED COMPOSITE - 3 SURF, POSTERIOR Routine 10/10/2024 8:00 AM EST PROPHYLAXIS - ADULT Routine 07/05/2024 1 :00 PM EST BITEWINGS - 4 RADIOGRAPHIC IMAGES Routine 07/05/2024 1:00 PM EST PERIODIC ORAL EVALUATION - ESTABLISHED PATIENT Routine 07/05/2024 1:00 PM EST from Last 3 Months or Most Recently Relevant to Health Maintenance Results * (ABNORMAL) Drug Monitoring, Panel 1, Screen, Urine (12/27/2024 10:25 AM EDT) Opiate Screen Urine Not Detected Not Detect [facility] Comment:Opiate cut-off is 30 0 ng/mL.Positive results are unconfirmed and should not be used fornon-medical purposes. Barbiturates, Urine Not Detected Not Detect [facility] Comment:Barbiturate cut-off is 200 ng/mL.Positive results are unconfirmed and should not be used fornon-medical purposes. Phencyclidine Screen Urine POSITIVE(A) Not Detect [facility] Comment:Phencyclidine cut-of f is 25 ng/mL.Positive results are unconfirmed and should not be used fornon-medical purposes. Amphetamine Screen Urine Not Detected Not Detect [facility] Comment:Amphetamine cut-off is 1000 ng/mL.Positive results are unconfirmed and should not be used fornon-medical purposes. Benzodiazepines Screen Urine Not Detected Not Detect [facility] Comment:Benzodiazepine cut-o ff is 200 ng/mL.Positive results are unconfirmed and should not be used fornon-medical purposes. Cocaine Screen Urine Not Detected Not Detect [facility] Comment:Cocaine cut-off is 3 00 ng/mL.Positive results are unconfirmed and should not be used fornon-medical purposes. Cannabinoid Screen Urine POSITIVE(A) Not Detect [facility] Comment:Cannabinoid cut-off is 50 ng/mL.Positive results are unconfirmed and should not be used fornon-medical purposes. Methadone Screen, Urine Not Detected Not Detect ng/mL [facility] Comment:Methadone cut-off is 300 ng/mL.Positive results are unconfirmed and should not be used fornon-medical purposes. FENTANYL URINE Not Detected Not Detect [facility] Comment:Fentanyl cut-off is 1 ng/mL.Positive results are unconfirmed and should not be used fornon-medical purposes. Oxycodone Urine Screen Not Detected Not Detect ng/mL [facility] Comment:Oxycodone cut-off is 100 ng/mL.Positive results are unconfirmed and should not be used fornon-medical purposes. Buprenorphine Screen Not Detected Not Detect ng/mL [facility] Comment:Buprenorphine cut-of f is 5 ng/mL.Positive results are unconfirmed and should not be used fornon-medical purposes. Urine (Urine, Random) 12/27/2024 10:25 AM EDT 12/27/2024 12:01 PM EDT us Hayes Muñoz MD LAB URINE ORDERABLES Final Resul t [facility] [address] [place] [address] [phone] * (ABNORMAL) Vitamin D, 25-Hydroxy, Total, Immunoassay (12/27/2024 10:24 AM EDT) Vitamin D 25-OH Total 13.0(L) >30 ng/mL [facility] Comment: Health Based Reference Values*< 20 ??ng/mL ??[id number] ng/mL ??Insufficient> 30 ??ng/mL ??Sufficient*Isaak TORRES. N Engl J Med. 2007;357:266-280There is no well-established upper level of normal vitamin Dlevels. Some laboratories use 50 ng/mL as an upper limit ofnormal. However, toxicity is patient-dependent and may occurat any level. Careful correlation with the patient'spresentation is necessary and, if there is concern forvitamin D toxicity, treatment should be consideredirrespective of the serum level.Care must be taken in interpreting Vitamin D results fromdifferent laboratories and methodologies. ??Published datademonstrated that results from patients undergoinghemodialysis may show a negative bias when tested withvarious automated 25-OH vitamin D assays when compared toLC- MS/MS.When testing samples from patients whose predominant form ofVitamin D is Vitamin D2, such as patients receiving VitaminD2 supplementation, results that are subtherapeutic shouldbe confirmed with another method such as LC-MS/MS. Blood Venous blood specimen / Unknown 12/27/2024 10:24 AM EDT 12/27/2024 12:00 PM EDT us Agustina Grullon MD LAB BLOOD ORDERABLES Final Result Performing Organization Address [facility] [address] [facility] Co de Phone Number [facility] [address] [place] [phone] * Vitamin B12/Folate, Serum Panel (12/27/2024 10:24 AM EDT) Vitamin B12 429 200 - 900 pg/mL [facility] Comment:NORMAL 200-900 PG/ML INDETERMINATE 160-199 PG/ML DEFICIENT < 160 PG/ML Folate 11.9 > or = 4.0 ng/mL [facility] Comment:Reference Values:> o r = 4.0 ng/mL< 4.0 ng/mL suggests folate deficiency Methotrexate, aminopterin and folinic acid(leucovorin) are chemotherapeutic agents whose molecularstructures are similar to folate; therefore, the Architectfolate assay cannot be used for patients using these drugs. Blood Venous blood specimen / Unknown 12/27/2024 10:24 AM EDT 12/27/2024 12:00 PM EDT us Agustina Grullon MD LAB BLOOD ORDERABLES Final Result Performing Organization Address [facility] [address] [facility] Co de Phone Number [facility] [address] [place] [phone] * Hepatitis C Viral RNA, Quantitative, Real-Time PCR (12/27/2024 10:24 AM EDT) Pathologist [facility] Hepatitis C Viral Load <15 NOT DETECTED NOT DETECTED IU/mL [facility] HCV Log PCR <1.18 NOT DETECTED NOT DETECTED Log IU/mL [facility] Comment:For additional infor rico, please refer [email or web address].MathZee/faq/WHO91s5(This link is being provided for informational/educational purposes only.)THIS TEST WAS PERFORMED AT:[email or web address] [place] [phone] KELLER MD Blood Venous blood specimen / Unknown 12/27/2024 10:24 AM EDT 12/27/2024 12:00 PM EDT us Agustina Grullon MD LAB BLOOD ORDERABLES Final Result [facility] [address] [place] [phone] * (ABNORMAL) CBC auto differential (12/27/2024 10:24 AM EDT) [facility] White Blood Count 6.8 4.8 - 10.8 X10*3/uL [facility] Red Blood Count 4.47(L) 4.60 - 5.80 X10*6/uL [facility] Hemoglobin 13.9(L) 14.0 - 18.0 g/dl [facility] Hematocrit 39.9(L) 42.0 - 52.0 % [facility] Mean Corpuscular Volume 89.3 80.0 - 98.0 fL [facility] Mean Corpuscular Hemoglobin 31.1 27.0 - 33.0 pg [facility] Mean Corpuscular HGB Conc 34.8 31.0 - 36.0 g/dl [facility] Red Cell Distribution Width 14.6 11.0 - 16.0 % [facility] Platelet Count 277 160 - 400 X10*3/uL [facility] Mean Platelet Volume 9.3(L) 9.4 - 12.4 fL [facility] Neutrophils Percent Auto 62.6 45 - 73 % [facility] Imm Gran Pct Auto 0.7(H) 0.0 - 0.4 % [facility] Lymphocytes Percent Auto 25.2 20 - 40 % [facility] Monocytes Percent Auto 9.2 2 - 11 % [facility] Eosinophils Percent Auto 1.0 0 - 4 % [facility] Basophils Percent Auto 1.3 0 - 2 % [facility] NRBC Pct Auto 0.0 0.0 - 0.2 /100WBC [facility] Neutrophils Absolute Auto 4.2 2.0 - 8.3 x10*3/uL [facility] Imm Gran Abs Auto 0.05(H) 0.00 - 0.03 X10*3/uL [facility] Lymphocytes Absolute Auto 1.7 1.2 - 4.9 X10*3/uL [facility] Monocytes Absolute Auto 0.6 0.1 - 1.2 X10*3/uL [facility] Eosinophils Absolute Auto 0.1 0.0 - 0.4 X10*3/uL [facility] Basophils Absolute Auto 0.1 0.0 - 0.2 X10*3/uL [facility] NRBC Abs Auto 0.000 0.0 - 0.012 X10*3/uL [facility] Blood Venous blood specimen / Unknown 12/27/2024 10:24 AM EDT 12/27/2024 12:00 PM EDT us Agustina Grullon MD LAB BLOOD ORDERABLES Final Result [facility] [address] [place], [place] [phone] * HIV-1/2 Antigen and Antibodies, Fourth Generation, with Reflexes (12/27/2024 10:24 AM EDT) HIV AB/AG Nonreactive Nonreactive [facility] Comment:HIV-1 p24 Ag and/or HIV-1/HIV-2 Ab not detected.A test result that is nonreactive does not exclude thepossibility of exposure to or infection with HIV-1 and/orHIV-2. Nonreactive results in this assay for individualswith prior exposure to HIV-1 and/or HIV-2 may be due toantigen and antibody levels that are below the limit ofdetection of this assay.The [employer] HIV Ag/Ab Combo assay result andsupplemental assay results should be interpreted inconjunction with the patient's clinical presentation,history and other laboratory results. If the results areinconsistent with clinical evidence, additional testing issuggested to confirm the result. Blood Venous blood specimen / Unknown 12/27/2024 10:24 AM EDT 12/27/2024 12:00 PM EDT us Agustina Grullon MD LAB BLOOD ORDERABLES Final Result Performing Organization Address [facility] [address] [facility]/ZIP Co de Phone Number [facility] [address] [place] [phone] * Magnesium (12/27/2024 10:24 AM EDT) Magnesium 1.7 1.6 - 2.6 mg/dL [facility] Blood Venous blood specimen / Unknown 12/27/2024 10:24 AM EDT 12/27/2024 12:00 PM EDT us Agustina Grullon MD LAB BLOOD ORDERABLES Final Result Performing Organization Address City/[facility] [address] [facility]/ZIP Co de Phone Number [facility] [address] [place] [phone] * (ABNORMAL) Lipid Panel, Standard (12/27/2024 10:24 AM EDT) Triglycerides 391(H) <150 mg/dL [facility] Comment:Desirable Triglyceri de: less than 150 mg/dLBorderline High Triglyceride 150-199 mg/dLHigh Triglyceride: 200-499 mg/dLVery High Triglyceride: greater than or equal to 5OO mg/dL Cholesterol 302(H) <200 mg/dL [facility] Comment:Desirable Cholestero l: less than 200 mg/dLBorderline High Cholesterol: 200-239 mg/dLHigh Cholesterol: greater than 239 mg/dL LDL Cholesterol Calculated 163(H) <100 mg/dL [facility] Comment:Desirable LDL: less than 100 mg/dLNear Optimal/Above Optimal LDL: 110- 129 mg/dLBorderline High LDL: 130-159 mg/dLHigh LDL: 160-189 mg/dLVery High LDL: greater than or equal to 190 mg/dL HDL Cholesterol 61 >40 mg/dL [facility] Comment:Desirable HDL: great er than 40 mg/dL Note: This HDL assay may give artificially low results in patients with liver disease. Blood Venous blood specimen / Unknown 12/27/2024 10:24 AM EDT 12/27/2024 12:00 PM EDT us Agustina Grullon MD LAB BLOOD ORDERABLES Final Result [facility] [address] [place] [phone] * (ABNORMAL) Comprehensive Metabolic Panel (12/27/2024 10:24 AM EDT) Sodium 138 135 - 145 mmol/L [facility] Potassium 4.1 3.3 - 5.1 mmol/L [facility] Chloride 103 96 - 108 mmol/L [facility] Carbon Dioxide 23 22 - 29 mmol/L [facility] Anion Gap 16 12 - 20 [facility] Urea Nitrogen (BUN) 3(L) 9 - 16 mg/dL [facility] Creatinine, Serum 0.77 0.5 - 1.4 mg/dL [facility] Estimated Glomerular Filt Rate >60 [facility] Comment:Chronic Kidney Disea se: Estimated GFR < 60 mL/min/1.09f1Ztaild Kidney Disease: Estimated GFR < 15 mL/min/1.73m2 Glucose 120(H) 60 - 115 mg/dL [facility] Calcium 9.7 8.4 - 10.2 mg/dL [facility] Bilirubin, Total 0.5 0.0 - 1.0 mg/dL [facility] Aspartate Amino Transferase 35 5 - 37 U/L [facility] Alanine Aminotransferase 19 0 - 40 U/L [facility] Total Protein 7.1 6.5 - 8.0 g/dL [facility] Albumin Level 4.2 3.5 - 5.0 g/dL [facility] Alkaline Phosphatase 67 39 - 117 U/L [facility] Blood Venous blood specimen / Unknown 12/27/2024 10:24 AM EDT 12/27/2024 12:00 PM EDT Agustina Grullon MD LAB BLOOD ORDERABLES Final Result [facility] [address] [place] [phone] * POCT STEPHANIE-14 Urine Drug Screen (12/24/2024 [...] CARE TEST ENTER/EDIT OR DERABLES Final Result from Last 3 Months Insurance [facility] AD[facility] Care Teams Wood Fence Installer Relationship Specialty Start Date End Date Agustina Grullon MD [address] [place] [phone] PCP - General Internal Medicine 01/02/19
--- OUTSIDE RECORDS SUMMARY | 2025-01-01 12:23 | XMS_ITS | Encounter Summary ---
Author Organization [employer] Address [address] [facility] 7t [place] [address] Care Team Providers Care Golf Cart Assembler Name Role Phone Agustina Grullon MD Primary Care Provider Encounter Details Date Type Department Care Team (Latest Contact Info) Description 12/30/2024 Results Follow-Up [facility] [address] [place] [address] Agustina Grullon MD [address] [place] [address] CBC auto differential, Lipid Panel, Standard, Comprehensive Metabolic Panel, Additional followed-up results: 5 Social History Tobacco Use Types Packs/Day Years [...] encounter Miscellaneous Notes * Telephone Encounter - Patti Macias RN - 12/31/2024 4:03 PM EDT Placed call to pt regarding message from PCP. Pt verbalized understanding and agrees with plan. Pt then went on stating he forgot to mention to PCP of having a palpable small mass right under jaw on his Left side. Pt stated having a tooth extraction a month ago and was complicated with dry socket. Pt is unsure if this is related or something else. Pt denies any dysphagia or pain to swallow, but do es endorse mild pain when palpating surrounding area. Pt agrees to visit on 01/03/25 for evaluation. * Telephone Encounter - Patti Macias RN - 12/31/2024 3:44 PM EDT ----- Message from Agustina Grullon MD sent at 12/30/2024 6:57 PM EDT ----- Please call. Patient has mild anemia. We will repeat the CBC in 6 weeks or so to assess if there isany improvement after complete alcohol cessation. Elevated triglycerides. Which could also be related to chronic alcohol use. Please advise complete cessation of alcohol and the test will be repeated at the next visit. Low vitamin D. Mr. Ray Turner Needs to be on vitamin D supplementation. Hepatitis C viral load undetectable. ----- Message ----- From: Interface, Lab Results In Sent: 12/27/2024 12:15 PM EDT To: Agustina Grullon MD documented in this encounter Plan of Treatment Upcoming Encounters Date Type Department Care Team (Late st Contact Info) Description 01/03/2025 9:30 AM EDT Office Visit [facility] [address] [place] [address] Agustina Grullon MD [address] [place] [address] 01/21/2025 10:30 AM EDT Office Visit [facility] [address] [place], [place] [phone] Hayes Muñoz MD [address] [place] [phone] documented as of this encounter Visit Diagnoses Diagnosis Low vitamin D level- Primary documented in this encounter Additional Health Concerns Assessment Noted Time PHQ-9 Depression Total Score: 27 025 2:36 PM EDT documented as of this encounter Care Teams Golf Cart Assembler Relationship Specialty Start Date End Date Agustina Grullon MD [address] [place] [address] PCP - General Internal Medicine 01/02/19 documented as of this encounter
--- OUTSIDE RECORDS SUMMARY | 2025-01-01 12:23 | XMS_ITS | Encounter Summary ---
Author Organization [employer] Address [address] [facility] 7t [place] [address] Care Team Providers Care Brim Ironer Hand Name Role Phone Agustina Grullon MD Primary Care Provider Reason for Visit * Reason Comments Follow-up Encounter Details Date Type Department Care Team ([facility] Contact Info) Description 12/27/2024 9:30 AM EDT Office Visit [facility] MED & PEDS [address] [place] [address] Agustina Grullon MD [address] [place] [address] Non-recurrent acute suppurative otitis media of left [...] Description 01/03/2025 9:30 AM EDT Office Visit [facility] [address] [place] [address] Agustina Grullon MD [address] [place] [address] 01/21/2025 10:30 AM EDT Office Visit [facility] [address] [place] [address] Hayes Muñoz MD [address] [place] [phone] documented as of this encounter Visit Diagnoses Diagnosis Non-recurrent acute suppurative otitis media of left ear without spontaneous rupture of tympanic membrane- Primary Alcohol use disorder, severe, dependence (CMS/HCC) Functional diarrhea documented in this encounter Additional Health Concerns Assessment Noted Time PHQ-9 Depression Total Score: 27 025 2:36 PM EDT documented as of this encounter Care Teams Brim Ironer Hand Relationship Specialty Start Date End Date Agustina Grullon MD [address] [place] [id number] PCP - General Internal Medicine 01/02/19 documented as of this encounter
--- OUTSIDE RECORDS SUMMARY | 2025-01-01 12:23 | XMS_ITS | Encounter Summary ---
Author Organization [employer] Address 75 [facility] 7t [place] [address] Care Team Providers Care Finish Molder Name Role Phone Agustina Grullon MD Primary Care Provider [phone] Encounter Details Date Type Department Care Team [...] Description 01/03/2025 9:30 AM EDT Office Visit [facility] MED & PEDS [address] [place] [address] Agustina Grullon MD [address] [place] [address] 01/21/2025 10:30 AM EDT Office Visit [facility] MED [facility]ED[facility] [address] [place], [place] [phone] Hayes Muñoz MD [address] [place] [address] documented as of this encounter Visit Diagnoses Not on filedocumented in this encounter Additional Health Concerns Assessment Noted Time PHQ-9 Depression Total Score: 27 025 2:36 PM EDT documented as of this encounter Care Teams Finish Molder Relationship Specialty Start Date End Date Agustina Grullon MD [address] [place] [address] PCP - General Internal Medicine 01/02/19 documented as of this encounter
--- OUTSIDE RECORDS SUMMARY | 2025-01-01 12:23 | XMS_ITS | Encounter Summary ---
Author Organization [employer] Address 75 [facility] 7 h Floor [place] [id number] Care Team Providers Care Optics Manufacturing Technician Name Role Phone Agustina Grullon MD Primary Care Provider Encounter Details Date Type Department Care Team (Latest Contact Info) Description 02/08/2019 Abstract [facility] CONVERSIONS Dental, Provider, DDS Social History [...] [facility] [address] [place] [address] Agustina Grullon MD [address] [place] [address] 01/21/2025 10:30 AM EDT Office Visit [facility] MED [facility] [address] [place] [address] Hayes Muñoz MD [address] [place], [place] [phone] documented as of this encounter Visit Diagnoses Not on filedocumented in this encounter Care Teams Optics Manufacturing Technician Relationship Specialty Start Date End Date Agustina Grullon MD [address] [place] [address] PCP - General Internal Medicine 01/02/19 documented as of this encounter
--- OUTSIDE RECORDS SUMMARY | 2025-01-01 12:23 | XMS_ITS | Clinical Summary ---
Author Organization [facility] ity Address [address] [place] [address] Care Team Providers Care Can Bander Operator Name Role Phone Unavailable Primary Care Provider [...]
--- OUTSIDE RECORDS SUMMARY | 2025-01-01 12:23 | XMS_ITS | Encounter Summary ---
Author Organization [employer] Address [address] [facility] 7t [place] [address] Care Team Providers Care Education Trainer Name Role Phone Agustina Grullon MD Primary Care Provider Encounter Details Date Type Department Care Team (Late st Contact Info) Description 12/27/2024 Orders Only [facility] MED & PEDS [address] [place], [place] [phone] Agustina Grullon MD [address] [place], [place] [phone] Low vitamin D level (Primary Dx) Social History Tobacco Use Types [...] Description 01/03/2025 9:30 AM EDT Office Visit [facility] MED & PED[facility] [address] [place] [address] Agustina Grullon MD [address] [place] [address] 01/21/2025 10:30 AM EDT Office Visit [facility] [address] [place], [place] [phone] Hayes Muñoz MD [address] [place] [phone] documented as of this encounter Visit Diagnoses Diagnosis Low vitamin D level- Primary documented in this encounter Additional Health Concerns Assessment Noted Time PHQ-9 Depression Total Score: 27 025 2:36 PM EDT documented as of this encounter Care Teams Education Trainer Relationship Specialty Start Date End Date Agustina Grullon MD [address] [place] [address] PCP - General Internal Medicine 01/02/19 documented as of this encounter
--- OUTSIDE RECORDS SUMMARY | 2025-01-01 12:23 | XMS_ITS | Encounter Summary ---
Author Organization [employer] Address [address] [facility] 7t [place] [address] Care Team Providers Care Admissions Manager Name Role Phone Agustina Grullon MD Primary Care Provider Reason for Visit * Reason Onset Date Comments Lab Orders 12/27/2024 Encounter Details Date Type Department Care Team ([facility] Contact Info) Description 12/27/2024 Telephone [facility] MED & PEDS [address] [place] [address] Agustina Grullon MD [address] [place] [address] Lab Orders Social History Tobacco Use Types [...] to request that pt complete labs at [facility] or [facility]. Pt verbalzed understanding and agreement with plan. Stated he would return to health center today. documented in this encounter Plan of Treatment Upcoming Encounters Date Type Department Care Team ([facility] st Contact Info) Description 01/03/2025 9:30 AM EDT Office Visit [facility] MED & PEDS [address] [place] [address] Agustina Grullon MD [address] [place] [address] 01/21/2025 10:30 AM EDT Office Visit [facility] CHC MED & PEDS [address] [place], [place] [phone] Hayes Muñoz MD [address] [place] [address] documented as of this encounter Visit Diagnoses Not on filedocumented in this encounter Additional Health Concerns Assessment Noted Time PHQ-9 Depression Total Score: 27 025 2:36 PM EDT documented as of this encounter Care Teams Admissions Manager Relationship Specialty Start Date End Date Agustina Grullon MD [address] [place] [address] PCP - General Internal Medicine 01/02/19 documented as of this encounter
--- OUTSIDE RECORDS SUMMARY | 2025-01-01 12:23 | XMS_ITS | Encounter Summary ---
Author Organization [employer] Address [address] [facility] 7 h Floor [place] [id number] Care Team Providers Care Beaver Trapper Name Role Phone Agustina Grullon MD Primary Care Provider Encounter Details Date Type Department Care Team (Latest Contact Info) Description 08/05/2021 Abstract [facility] CONVERSIONS Dental, Provider, DDS Social History Tobacco [...] 01/03/2025 9:30 AM EDT Office Visit [facility] MED & PEDS [address] [place] [address] Agustina Grullon MD [address] [place] [address] 01/21/2025 10:30 AM EDT Office Visit [facility] MED & PEDS [address] [place] [address] Hayes Muñoz MD [address] [place] [address] documented as of this encounter Visit Diagnoses Not on filedocumented in this encounter Care Teams Beaver Trapper Relationship Specialty Start Date End Date Agustina Grullon MD [address] [place] [address] PCP - General Internal Medicine 01/02/19 documented as of this encounter
--- OUTSIDE RECORDS SUMMARY | 2025-01-01 12:23 | XMS_ITS | Encounter Summary ---
Author Organization [employer] Address [address] [facility] 7t [place] [address] Care Team Providers Care Head Mixer Name Role Phone Agustina Grullon MD Primary Care Provider Reason for Visit * Reason Onset Date Comments Results 12/28/2024 Encounter Details Date Type Department Care Team ([facility] Contact Info) Description 12/28/2024 Telephone [facility] MED & PEDS [address] [place] [address] Agustina Grullon MD [address] [place] [address] Results Social History Tobacco Use Types Packs/Day Years [...] encounter Miscellaneous Notes * Telephone Encounter - Amparo Elena RN - 12/28/2024 3:00 PM EDT Pt walk in. RN explained pt low vit D and high triglycerides. RN encouraged pt to take his vit D supplement, stop drinking, and to have a low cholesterol diet. RN told pt to get his labs drawn at hisnext visit and no new medication for now. Pt verbalized understanding and agreement with the plan of care. * Telephone Encounter - Amparo Elena RN - 12/28/2024 11:54 AM EDT TC to pt. No answer. VM left with clinic number to pt number in chart. ----- Message from Agustina Grullon MD sent at 12/27/2024 1:26 PM EDT ----- Please call. Labs reviewed:1) low vitamin D. Patient needs to be on vitamin D supplementation.2) hypertriglyceridemia. This could be related to the alcohol use disorder. Please commend patient on hisdecreased use of alcohol and also remind him that his goal should be to completely stop drinking. No medication will be started for now. We will repeat the level at the next visit after he tries a low-cholesterol diet and when he is sober. documented in this encounter Plan of Treatment Upcoming Encounters Date Type Department Care Team (Late st Contact Info) Description 01/03/2025 9:30 AM EDT Office Visit [facility] MED & PEDS [address] [place] [address] Agustina Grullon MD [address] [place] [address] 01/21/2025 10:30 AM EDT Office Visit [facility] MED & PEDS [address] [place] [address] Hayes Muñoz MD [address] [place] [phone] documented as of this encounter Visit Diagnoses Not on filedocumented in this encounter Additional Health Concerns Assessment Noted Time PHQ-9 Depression Total Score: 27 025 2:36 PM EDT documented as of this encounter Care Teams Head Mixer Relationship Specialty Start Date End Date Agustina Grullon MD [address] [place] [address] PCP - General Internal Medicine 01/02/19 documented as of this encounter
[2025-01-01 16:09] LABS: Adenovirus F 40/41 Not Detected (Not Detect.); Astrovirus Not Detected (Not Detect.); Campylobacter Not Detected (Not Detect.); Cryptosporidium Not Detected (Not Detect.); Cyclospora cayetanensis Not Detected (Not Detect.); E. coli EAEC Not Detected (Not Detect.); E. coli EPEC Not Detected (Not Detect.); E. coli ETEC Not Detected (Not Detect.); E. coli STEC Not Detected (Not Detect.); Entamoeba histolytica Not Detected (Not Detect.); Giardia lamblia Not Detected (Not Detect.); Norovirus GI/GII Not Detected (Not Detect.); Plesiomonas shigelloides Not Detected (Not Detect.); Rotavirus A Not Detected (Not Detect.); Salmonella Not Detected (Not Detect.); Sapovirus Not Detected (Not Detect.); Shigella sp./EIEC Not Detected (Not Detect.); Vibrio Not Detected (Not Detect.); Vibrio Cholerae Not Detected (Not Detect.); Yersinia enterocolitica Not Detected (Not Detect.)
== END 2025-01-01 11:05 | disposition home or self-care (01) ==
LOC: HO.CHCLNP 11:04
PROVIDERS: Visit Provider Internal Medicine
DX: K59.1 Functional diarrhea (principal)
CPT/HCPCS: 87507